=== PATIENT | male | born 1985 | race Caucasian/White ===

== ENCOUNTER 2020-06-02 17:30 | Emergency (ER) | payer BC, OTHER ==
[2020-06-02 18:21] LABS: BASO % 2.8 % (0-2.0); EOS % 1.4 % (0-4.5); HEMATOCRIT 50.4 % (35.4-49); HEMOGLOBIN 16.9 GM/dl (11.7-16.9); LYMPH % 42.4 % (8-40); MCH 32.5 pg (25.7-33.7); MCHC 33.4 g/dl (32.0-35.9); MEAN CELL VOLUME 97.1 fl (80-96); MEAN PLT VOLUME 8.4 fl (7.5-11.1); MONO % 10.4 % (3.8-10.2); PLATELET COUNT 180 K/MM3 (134-434); RBC 5.19 M/mm3 (4.00-5.60); RDW 11.2 % (11.9-15.9); WHITE BLOOD COUNT 4.4 K/mm3 (4.0-10.8)
[2020-06-02 18:42] VITALS: BP 133/78; PULSE 76; TEMP 98.8; BMI 25.7
[2020-06-02 18:43] LABS: ALBUMIN 4.7 g/dl (3.4-5.0); CALCIUM 9.4 mg/dl (8.5-10); POTASSIUM 3.9 mmol/L (3.5-5.1); TOT PROT 7.4 g/dl (6.4-8.2)
== END 2020-06-02 18:54 | disposition home or self-care (01) ==
LOC: FER 17:30
DX: R10.9 Unspecified abdominal pain (principal)
CPT/HCPCS: 36415; 80053; 81003; 83690; 85025; 87086; 99284-25

== ENCOUNTER 2020-06-10 07:43 | Emergency (ER) | payer BC ==
[2020-06-10 07:54] VITALS: BP 123/81; PULSE 94; BMI 26.4
[2020-06-10] MEDS ORDERED: SODIUM CHLORIDE 2,585 ML IV ONE (07:54)
[2020-06-10] MEDS ORDERED: ACETAMINOPHEN INJECTION 100 ML IVPB ONE (07:56)
[2020-06-10] MEDS ORDERED: ACETAMINOPHEN 1000 MG/100 ML VIAL (NON FORMULARY) IVPB ONE (07:57)
[2020-06-10 08:46] LABS: BASO % 0.2 % (0-2.0); EOS % 0.4 % (0-4.5); HEMATOCRIT 45.9 % (35.4-49); HEMOGLOBIN 15.9 GM/dl (11.7-16.9); MCHC 34.7 g/dl (32.0-35.9); MEAN PLT VOLUME 9.1 fl (7.5-11.1); MONO % 7.3 % (3.8-10.2); NEUT % 86.1 % (42.8-82.8); PLATELET COUNT 169 K/MM3 (134-434); RBC 4.83 M/mm3 (4.00-5.60); WHITE BLOOD COUNT 10.2 K/mm3 (4.0-10.8)
[2020-06-10 08:54] LABS: ALBUMIN 4.1 g/dl (3.4-5.0); BILIRUBIN,TOTAL 0.8 mg/dl (0.2-1); CALCIUM 8.9 mg/dl (8.5-10); CREATININE 1.1 mg/dl (0.55-1.3); POTASSIUM 3.9 mmol/L (3.5-5.1)
[2020-06-10 09:03] VITALS: TEMP 99.8
== END 2020-06-10 11:22 | disposition home or self-care (01) ==
LOC: FER 07:43
PROC: 3E033NZ Introduction of Analgesics, Hypnotics, Sedatives into Peripheral Vein, Percutaneous Approach (ICD-10-PCS; principal; 2020-06-10)
PROC: 3E0337Z Introduction of Electrolytic and Water Balance Substance into Peripheral Vein, Percutaneous Approach (ICD-10-PCS; 2020-06-10)
DX: R50.9 Fever, unspecified (principal)
CPT/HCPCS: 36415; 74178-TC; 80053; 81003; 82272; 83605; 85025; 87040; 87086; 99285-25; C9803; J0131; Q9967; U0003

== ENCOUNTER 2021-06-05 16:22 | Emergency (ER) | payer BC, OTHER ==
[2021-06-05] MEDS ORDERED: SODIUM CHLORIDE 0.9% 500 ML INFUS.BAG IV ONE ×2 (16:24→17:57)
[2021-06-05] MEDS ORDERED: ONDANSETRON 4 MG/2 ML VIAL IVPUSH ONE (16:24)
[2021-06-05] MEDS ORDERED: ONDANSETRON 4 MG/2 ML VIAL ONE (16:37)
[2021-06-05] MEDS ORDERED: FAMOTIDINE 20 MG/50 ML IVPB 20 MG/50 ML MG IVPB ONE ×2 (16:42→16:53)
[2021-06-05] MEDS ORDERED: ACETAMINOPHEN 1000 MG/100 ML BAG IVPB ONE (16:43)
[2021-06-05] MEDS ORDERED: ACETAMINOPHEN INJECTION 100 ML IVPB ONE (16:53)
[2021-06-05 17:11] VITALS: BP 114/89; PULSE 92; TEMP 97.8; BMI 28.8
[2021-06-05 17:59] LABS: BILIRUBIN,TOTAL 1.3 mg/dl (0.2-1); CALCIUM 8.9 mg/dl (8.5-10); TOT PROT 6.6 g/dl (6.4-8.2)
[2021-06-05] MEDS ORDERED: SODIUM CHLORIDE 1,000 ML IV ONE (18:00)
[2021-06-05] MEDS ORDERED: POTASSIUM CHLORIDE TABS 20 MEQ TABLET.ER (FP) PO ONE ×2 (18:01→18:02)
[2021-06-05 18:46] LABS: BASO % 0.2 % (0-2.0); EOS % 0.1 % (0-4.5); HEMATOCRIT 42.5 % (35.4-49); HEMOGLOBIN 15.3 GM/dL (11.7-16.9); LYMPH % 6.8 % (8-40); MCH 32.5 pg (25.7-33.7); MCHC 35.9 g/dl (32.0-35.9); MEAN CELL VOLUME 90.4 fl (80-96); MEAN PLT VOLUME 9.1 fl (7.5-11.1); MONO % 9.9 % (3.8-10.2); PLATELET COUNT 145 10^3/uL (134-434); RDW 12.7 % (11.9-15.9)
[2021-06-06 11:07] LABS: SARS-CoV-2 NAA Not Detected (Not Detected)
== END 2021-06-05 19:03 | disposition home or self-care (01) ==
LOC: FER 16:22
PROC: 3E0333Z Introduction of Anti-inflammatory into Peripheral Vein, Percutaneous Approach (ICD-10-PCS; principal; 2021-06-05)
PROC: 3E033GC Introduction of Other Therapeutic Substance into Peripheral Vein, Percutaneous Approach (ICD-10-PCS; 2021-06-05)
PROC: 3E033GC Introduction of Other Therapeutic Substance into Peripheral Vein, Percutaneous Approach (ICD-10-PCS; 2021-06-05)
DX: R11.2 Nausea with vomiting, unspecified (principal); R19.7 Diarrhea, unspecified
CPT/HCPCS: 36415; 80053; 83690; 85025; 99284-25; C9803; U0003; U0005